=== PATIENT | female | born 1995 | race Caucasian/White ===

== ENCOUNTER 2021-03-17 09:18 | Emergency (ER) | payer BC, SELFPAY ==
[2021-03-17 09:25] VITALS: BP 139/80; PULSE 114; RESP 16; TEMP 37.6; O2SAT 98
--- NOTE | 2021-03-17 10:00 | ED.URI ---
HPI - URI/Sore Throat General Chief Complaint: Upper Respiratory Infection Stated Complaint: sinus pressure nausea Source: patient and RN notes reviewed Mode of arrival: ambulatory History of Present Illness HPI Narrative: This is a 25-year-old female who presented to urgent care today with complaints of congestion a productive cough with yellow sputum and ear congestion that started on Saturday. Patient notes that she took 3 Covid test the first 1 was emphasized the second 2 afterwards was negative. She also noted that her boyfriend tested negative twice. Patient did take Mucinex in DayQuil NyQuil at home for her symptoms. The patient denies SOB, CP, palpitation, extremity numbness, lightheadedness, dizziness, constipation, diarrhea, chills, or fever. Related Data Home Medications Medication Instructions Recorded Confirmed norethindrone-e.estradiol-iron [Lo 1 tablet PO DAILY 03/17/21 03/17/21 Loestrin Fe] Allergies Allergy/AdvReac Type Severity Reaction Status Date / Time amoxicillin Allergy Rash Verified 03/17/21 09:39 cefaclor [From Ceclor] Allergy Rash Verified 03/17/21 09:39 Penicillins Allergy Rash Verified 03/17/21 09:38 Review of Systems Review of Systems: A 14 organ system Review of Systems was performed and pertinent positives included in the HPI, otherwise remaining ROS is negative. [facility] Family History Family History (Updated 03/17/21 @ 10:02 by ROHIT SneedP-C) Other Family history non-contributory Exam Narrative: GENERAL: This is a well-nourished, well-developed patient, in no apparent distress. HEAD: normocephalic, atraumatic. EYES: PERRL. Sclera clear/white. Vision is grossly intact. EARS: External ears normal, auditory canals clear and without drainage, TMs normal without perforation. Hearing grossly intact. NOSE: External nose normal with no obvious nasal discharge, nares without redness, no rhinorrhea. THROAT: Mucous membranes moist, posterior pharynx clear. NECK: Neck supple, non-tender without lymphadenopathy, masses or thyromegaly. CARDIOVASCULAR: Regular rate and rhythm without murmurs, gallops, or rubs. RESPIRATORY: Clear to auscultation. Breath sounds equal bilaterally. No wheezes, rales, or rhonchi. GASTROINTESTINAL: Abdomen soft, non-tender, nondistended. Bowel sounds are active. No hepato-splenomegaly, or palpable masses. No guarding. SKIN: warm, intact with no suspicious lesions or rash, good texture and turgor. NEURO: awake, alert, and oriented to person, place and time. There were no obvious focal neurologic abnormalities. Steady gait EXTREMITIES: Normal range of motion. No edema. No calf tenderness. Negative Homans sign bilaterally. BACK: Nontender without deformity or crepitance. No flank tenderness. Course Course Emergency Course: Patient diagnosed with sinusitis will discharge home with Flonase, Claritin, Tessalon Perles and guaifenesin Vital Signs Vital signs: Vital Signs Temperature 99.6 F 03/17/21 09:25 Pulse Rate 114 H 03/17/21 09:25 Respiratory Rate 16 03/17/21 09:25 Blood Pressure 139/80 03/17/21 09:25 Pulse Oximetry 98 03/17/21 09:25 Temperature 99.6 F 03/17/21 09:25 Pulse Rate 114 H 03/17/21 09:25 Respiratory Rate 16 03/17/21 09:25 Blood Pressure 139/80 03/17/21 09:25 Pulse Oximetry 98 03/17/21 09:25 MDM - URI/Sore Throat Differential Diagnosis Differential diagnosis: Likely upper respiratory infection, otitis media, sinusitis, viral infection, bronchitis and pharyngitis Discharge Plan Discharge Clinical Impression: Sinusitis Qualifiers: Sinusitis location: frontal Chronicity: acute Recurrence: not specified as recurrent Qualified Code(s): J01.10 - Acute frontal sinusitis, unspecified Patient Disposition: Home, Self-Care Condition: Stable Instructions: Antibiotic Form, Sinusitis (ED) Additional Instructions: What are the symptoms of sinusitis? - Common symptoms of sinusitis include: ?Stuffy or
== END 2021-03-17 10:02 | disposition home or self-care (01) ==
PROVIDERS: Emergency Provider Nurse Practitioner
DX: J01.10 Acute frontal sinusitis, unspecified (principal)
CPT/HCPCS: 99203; G0463